=== PATIENT | female | born 1995 | race African-American/Black ===

== ENCOUNTER 2020-10-03 14:54 | Emergency (ER) | payer SELFPAY ==
[2020-10-03 15:02] VITALS: BP 104/67; PULSE 90; TEMP 98.1; BMI 25.2
== END 2020-10-03 16:36 | disposition home or self-care (01) ==
LOC: JER 14:54
DX: J45.20 Mild intermittent asthma, uncomplicated (principal)
CPT/HCPCS: 99282-25

== ENCOUNTER 2021-04-20 09:02 | Emergency (ER) | payer BC ==
[2021-04-20 09:13] VITALS: BP 112/67; PULSE 75; TEMP 98.4; BMI 26.2
[2021-04-20] MEDS ORDERED: cefTRIAXone SODIUM 1 GM VIAL ONE (10:08)
[2021-04-20 10:29] LABS: PH,URINE 5.5 (5.0-8.0); URINE APPEARANCE CLEAR; URINE BILIRUBIN NEGATIVE (NEGATIVE); URINE COLOR YELLOW; URINE GLUCOSE (UA) NEGATIVE (NEGATIVE); URINE KETONE NEGATIVE (NEGATIVE); URINE LEUK ESTERASE NEGATIVE (NEGATIVE); URINE NITRITE NEGATIVE (NEGATIVE); URINE PROTEIN NEGATIVE (NEGATIVE)
[2021-04-20 10:32] LABS: HCG,QUALITATIVE URINE Negative
== END 2021-04-20 10:50 | disposition home or self-care (01) ==
LOC: JERFT 09:02
DX: Z20.2 Contact with and (suspected) exposure to infections with a predominantly sexual mode of transmission (principal)
CPT/HCPCS: 36415; 81003; 84703; 87070; 87086; 87205; 87491; 87591; 99284-25

== ENCOUNTER 2022-10-13 00:19 | Emergency (ER) | payer BC ==
[2022-10-13 00:35] VITALS: BP 105/68; PULSE 76; RESP 18; TEMP 97.7; BMI 24.0
[2022-10-13] MEDS ORDERED: diphenhydrAMINE HCL 25 MG CAPSULE (FP) PO ONE ×4 (00:55→01:18)
[2022-10-13] MEDS ORDERED: DEXAMETHASONE LIQUID 0.5 MG/5 ML PO ONE (00:55)
[2022-10-13] MEDS ORDERED: DEXAMETHASONE SOD PHOSPHATE 10 MG/1 ML VIAL ONE ×2 (01:14→01:15)
== END 2022-10-13 01:32 | disposition home or self-care (01) ==
LOC: JER 00:19
DX: L50.9 Urticaria, unspecified (principal); R21 Rash and other nonspecific skin eruption; L29.9 Pruritus, unspecified
CPT/HCPCS: 99283-25